=== PATIENT | female | born 1970 | race Caucasian/White ===

== ENCOUNTER 2021-12-04 08:46 | Day surgery (SDC) | payer BC ==
[~2021-12-04 08:46] MED LIST: Albuterol 0.083% 2.5 MG/3 ML Neb Soln NEB PRN; HYDROmorphone 1 MG/ML Syringe IVPUSH PRN; Metoclopramide 10 MG/2 ML SDV IVPUSH PRN; Morphine 4 MG/ML VIAL IVPUSH PRN; Naloxone 0.4 MG/ML SDV IVPUSH PRN; Ondansetron 4 MG/2 ML SDV IVPUSH PRN; Scopolamine 1.5 MG Transdermal Patch TOP ONE; fentaNYL 50 MCG/ML SDV IVPUSH PRN
[2021-12-04] MEDS ORDERED: Propofol 200 MG/20 ML SDV ONE ×2 (09:21→10:55)
[2021-12-04] MEDS ORDERED: fentaNYL 250 MCG/5 ML SDV ONE (09:21)
[2021-12-04] MEDS ORDERED: Lactated Ringers 1,000 ML IV SCH (09:30)
[2021-12-04] MEDS ORDERED: Scopolamine 1.5 MG Transdermal Patch ONE (09:35)
[2021-12-04 09:47] LABS: CARBON DIOXIDE,CO2 27.3 mmol/L (21.0-32.0); POTASSIUM,K 3.5 mmol/L (3.5-5.1)
[2021-12-04] MEDS ORDERED: HYDROmorphone 2 MG/ML Syringe ONE (10:56)
[2021-12-04] MEDS ORDERED: Ketorolac 30 MG/ML SDV IVPUSH ONE (11:35)
[2021-12-04] MEDS ORDERED: Ketorolac 30 MG/ML SDV IVPUSH PRN (11:35)
[2021-12-04] MEDS ORDERED: Promethazine 25 MG/ML SDV IM PRN (11:35)
[2021-12-04] MEDS ORDERED: Acetaminophen 325 MG Tab PO PRN (11:35)
[2021-12-04] MEDS ORDERED: Ondansetron 4 MG/2 ML SDV IVPUSH PRN (11:35)
[2021-12-04] MEDS ORDERED: Morphine 4 MG/ML VIAL IVPUSH PRN (11:35)
[2021-12-04] MEDS ORDERED: ePHEDrine 50 MG/ML SDV ONE (11:40)
[2021-12-04] MEDS ORDERED: Phenylephrine HCl In 0.9% NaCl 1 MG/10 ML Vial ONE (11:40)
[2021-12-04] MEDS ORDERED: Dexamethasone 4 MG/ML 5 ML MDV ONE (11:40)
== END 2021-12-04 20:10 | disposition home or self-care (01) ==
LOC: MW.SDS 08:46 → MW.MS 11:35 → MW.SDS 20:10
PROVIDERS: ATTEND Obstetrics & Gynecology
DX: N81.6 Rectocele (principal); K21.9 Gastro-esophageal reflux disease without esophagitis; K58.9 Irritable bowel syndrome, unspecified; F41.9 Anxiety disorder, unspecified; F32.A Depression, unspecified; K44.9 Diaphragmatic hernia without obstruction or gangrene; Z98.890 Other specified postprocedural states; Z79.899 Other long term (current) drug therapy; Z79.83 Long term (current) use of bisphosphonates; Z79.51 Long term (current) use of inhaled steroids; Z91.040 Latex allergy status
CPT/HCPCS: 36415; 57250; 80048; 84703; 85025; 86850; 86900; 86901; A9270; J0131; J0690; J1100; J1170; J1885; J2704; J3010; J7120; 00942